=== PATIENT | male | born 1995 | race Caucasian/White ===

== ENCOUNTER 2016-12-31 15:32 | Emergency (ER) | payer BC ==
[2016-12-31 15:52] VITALS: BP 73/48
--- NOTE | 2016-12-31 16:09 | EDM.PDOC ---
ED HPI GENERAL MEDICAL PROBLEM - General Chief Complaint: Lower Extremity Injury/Pain Stated Complaint: LEFT KNEE INJURY Time Seen by Provider: 12/31/16 15:45 Source of Information: Reports: Patient, Family History Limitations: Reports: No Limitations - History of Present Illness INITIAL COMMENTS - FREE TEXT/NARRATIVE: Eduardo was chasing another male when his L knee buckled and he fell onto the street about an hour ago. There was no LOC. There is residual pain and minor swelling of the L knee. He can fully extend and flex the L knee. This knee was injured 4-5 years ago, and he wore a knee brace for a couple of years, but since discarded. He has taken no meds. Left Knee Pain Score (Numeric/FACES): 10 - Related Data Allergies Allergy/AdvReac Type Severity Reaction Status Date / Time No Known Allergies Allergy Verified 12/31/16 15:42 Home Meds: Home Meds NK [No Known Home Meds] 04/09/16 [History] Past Medical History - Past Health History Medical/Surgical History: Denies Medical/Surgical History Social & Family History - Tobacco Use Smoking Status *Q: Current Every Day Smoker Years of Tobacco use: 5 Packs/Tins Daily: 1 Used Tobacco, but Quit: No Second Hand Smoke Exposure: Yes - Caffeine Use Caffeine Use: Reports: Soda - Alcohol Use Days Per Week of Alcohol Use: 0 - Recreational Drug Use Recreational Drug Use: No Review of Systems - Review of Systems Review Of Systems: See Below Constitutional: Reports: No Symptoms Eyes: Reports: No Symptoms Ears: Reports: No Symptoms Nose: Reports: No Symptoms Mouth/Throat: Reports: No Symptoms Respiratory: Reports: No Symptoms Cardiovascular: Reports: No Symptoms GI/Abdominal: Reports: No Symptoms Genitourinary: Reports: No Symptoms Musculoskeletal: Reports: Leg Pain (L knee) Skin: Reports: No Symptoms Neurological: Reports: No Symptoms Psychiatric: Reports: No Symptoms ED EXAM, GENERAL - Physical Exam Exam: See Below Exam Limited By: No Limitations General Appearance: Alert, WD/WN, Mild Distress Head: Atraumatic, Normocephalic Neck: Normal Inspection Respiratory/Chest: Lungs Clear Cardiovascular: Regular Rate, Rhythm Back Exam: Normal Inspection Extremities: Joint Swelling (L knee, Lachmans neg, Jovanna neg, Apley neg; FROM , minor effusion) Neurological: Alert, Oriented, CN II-XII Intact, Normal Cognition, No Motor/ Sensory Deficits Psychiatric: Normal Affect, Normal Mood Skin Exam: Warm, Dry, Intact Lymphatic: No Adenopathy Course - Vital Signs Text/Narrative:: Eduardo remained stable at the [facility] ED. No meds were dispensed. He was fitted with crutches. Last Recorded V/S: Last Vital Signs Temp 36.6 C 12/31/16 15:43 Pulse 86 12/31/16 15:43 Resp 14 12/31/16 15:43 BP 73/48 L 12/31/16 15:43 Pulse Ox 97 12/31/16 15:43 Departure - Departure Time of Disposition: 16:10 Disposition: Home, Self-Care 01 Condition: fair Clinical Impression: Sprain of left knee Qualifiers: Encounter type: initial encounter Involved ligament of knee: unspecified ligament Qualified Code(s): S83.92XA - Sprain of unspecified site of left knee, initial encounter - Discharge Information Forms: ED Department Discharge - Problem List & Annotations (1) Sprain of left knee SNOMED Code(s): 98842190 Code(s): S83.92XA - SPRAIN OF UNSPECIFIED SITE OF LEFT KNEE, INITIAL ENCOUNTER Status: Acute Annotation/Comment:: Simple sprain L knee, managed with touch wt bearing, crutches, Ibuprofen, and medical leave from work for the next few days. Qualifiers: Encounter type: initial encounter Involved ligament of knee: unspecified ligament Qualified Code(s): S83.92XA - Sprain of unspecified site of left knee , initial encounter - Problem List Review Problem List Initiated/Reviewed/Updated: Yes - Assessment/Plan Plan: Follow up with PCP in the next few days.
== END 2016-12-31 16:04 | disposition home or self-care (01) ==
LOC: FB.ED 15:32
DX: S83.92XA Sprain of unspecified site of left knee, initial encounter (principal); F17.210 Nicotine dependence, cigarettes, uncomplicated; W19.XXXA Unspecified fall, initial encounter; Y92.410 Unspecified street and highway as the place of occurrence of the external cause
CPT/HCPCS: 99283

== ENCOUNTER 2020-02-19 20:27 | Emergency (ER) | payer BC ==
[2020-02-19 20:56] VITALS: BP 123/76; PULSE 80
--- NOTE | 2020-02-19 22:04 | EDM.PDOC ---
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 He also feels somewhat short of breath during this but he had no chest pain. He had a headache associated with this. And he had pain in his arms. Lasted for about 30 minutes or so and because of the persisting pain in his left arm now it seems to go all up and down his left arm that is an aching type pain and the feeling that he cannot intervention analyst as well with his left hand as he normally does caused him to present to the emergency department for evaluation. He had similar type symptoms in the right arm but these have resolved. He is currently rating the pain in his left arm as a 6/10. It is aching. Doesn't really seem to have any alleviating factors and is worse with palpation and movement. He has had no chest pain associated with this. He did feel somewhat short of breath at that has resolved as well. He had a slight headache associated with this but that is resolved he now feels almost back to normal except for the left arm discomfort. He has never had any chest pain associated with this. There has been no fevers or chills. The cough. No sore throat. There are really no antecedent problems. He had basically been working since 5:15 AM that morning. He states however that he works long days almost every day he has never had symptoms like this before. There are no other associated signs or symptoms. There are no other modifying factors. Onset: Today (5:30 to 6 PM) Duration: Improving Location: Reports: Upper Extremity, Left, Upper Extremity, Right Quality: Reports: Ache, Other (Sore) Severity: Moderate Improves with: Reports: None (Just getting better with time.) Worsens with: Reports: None Context: Reports: Other (As above) Associated Symptoms: Reports: Headaches, Shortness of Breath Treatments [employer]: Reports: Other (see below) (Nothing) - Related Data Allergies Allergy/AdvReac Type Severity Reaction Status Date / Time No Known Allergies Allergy Verified 02/19/20 20:47 Home Meds: Home Meds NK [No Known Home Meds] 04/09/16 [History] Past Medical History - Past Health History Medical/Surgical History: Denies Medical/Surgical History Cardiovascular History: Reports: Other (See Below) (Heart murmur as a child) - Past Surgical History Other Surgical History Comment: No previous surgeries. Social & Family History - Family History Family Medical History: Unobtainable (Patient reports that he does not know any other medical problems in his family because he does not have any contact with his family.) - Tobacco Use Smoking Status *Q: Unknown Ever Smoked (Nonsmoker) - Caffeine Use Caffeine Use: Reports: Soda - Alcohol Use Alcohol Use History: Yes Alcohol Use Frequency: Socially (Occasional alcohol use.) - Living Situation & Occupation Occupation: Employed (He works as a [employer].) ED ROS GENERAL - Review of Systems Review Of Systems: See Below Constitutional: Reports: No Symptoms HEENT: Reports: No Symptoms Respiratory: Reports: No Symptoms Cardiovascular: Reports: No Symptoms Endocrine: Reports: No Symptoms GI/Abdominal: Reports: No Symptoms : Reports: No Symptoms Musculoskeletal: Reports: Arm Pain Skin: Reports: No Symptoms Neurological: Reports: Numbness, Paresthesia Hematologic/Lymphatic: Reports: No Symptoms Immunologic: Reports: No Symptoms ED EXAM, GENERAL - Physical Exam Exam: See Below Exam Limited By: No Limitations General Appearance: Alert, WD/WN, No Apparent Distress Eye Exam: Bilateral Eye: EOMI, Normal Inspection, PERRL Ears: Normal External Exam, Hearing Grossly Normal Ear Exam: Bilateral Ear: Auricle Normal Nose: Normal Inspection, Normal Mucosa, No Blood Throat/Mouth: Normal Inspection, Normal Lips, Normal Oropharynx, Normal Voice, No Airway Compromise Head: Atraumatic, Normocephalic Neck: Normal Inspection, Supple, Non-Tender, Full Range of Motion Respiratory/Chest: No Respiratory Distress, Lungs Clear, Normal Breath Sounds, No Accessory Muscle Use Cardiovascular: Normal Peripheral Pulses, Regular Rate, Rhythm, No Murmur, No Rub Peripheral Pulses: 2+: Radial (L), Radial (R), Dorsalis Pedis (L), Dorsalis Pedis (R) GI/Abdominal: Normal Bowel Sounds, Soft, Non-Tender, No Mass (Male) Exam: No: Testicular Tenderness (R) Back Exam: Normal Inspection, Full Range of Motion, CVA Tenderness (L) Extremities: Normal Inspection, Normal Range of Motion, No Pedal Edema, Normal Capillary Refill Neurological: Alert, Oriented, CN II-XII Intact, Normal Cognition, No Motor/Sensory Deficits Skin Exam: Warm, Dry, Intact, Normal Color, No Rash EKG INTERPRETATION EKG Date: 02/19/20 Time: 22:05 Rhythm: NSR Rate (Beats/Min): 68 [place]: Normal P-Wave: Present QRS: Normal ST-T: Normal QT: Normal Comparison: NA - No Prior EKG (Normal EKG.) Course - Vital Signs Last Recorded V/S: Last Vital Signs Temp 36.6 C 02/19/20 20:30 Pulse 80 02/19/20 20:30 Resp 18 02/19/20 20:30 BP 123/76 02/19/20 20:30 Pulse Ox 100 02/19/20 20:30 - Orders/Labs/Meds Orders: Active Orders 24 hr Category Date Time Status EKG 12 Lead [EK] Routine Ther 02/19/20 22:04 Ordered - Re-Assessments/Exams Free Text/Narrative Re-Assessment/Exam: 02/19/20 22:20: EKG was reassuringly normal. I have told the patient that we would need to do blood tests and an x-ray of his chest and a CT scan of his head to more fully investigate this. He is only willing to have the EKG performed. He is not willing to have blood tests performed, a CT scan performed or a chest x-ray performed. I have told him that an EKG would not be sufficient to adamantly evaluate him but he is rather adamant about only one EKG and if that is normal he would want to go home despite any risk associated with this. Therefore, with his EKG being normal and the symptoms and his left hand and arm appearing to resolve, he wishes to go home. I have strongly encouraged him to follow-up with his primary provider and I have told her that he can come back at any time for reevaluation or completion of this evaluation. Departure - Departure Time of Disposition: 22:25 Disposition: Home, Self-Care 01 Clinical Impression: Left arm pain, Left upper extremity numbness, Dizziness - Discharge Information Instructions: Dizziness, [id number], Pain Without a Known Cause Referrals: Lavelle Tierney MD [Primary Care Provider] - Forms: ED Department Discharge Additional Instructions: Your EKG was normal. As we discussed, I recommended further testing which would include blood tests, a chest x-ray and a CAT scan of your head to more fully evaluate you for the symptoms that you presented with. You did not wish to have these tests performed and understand the risks of not having these tests performed. I am unsure why you had the dizziness and bilateral arm numbness and arm pain. I strongly encourage you to follow-up with your primary provider tomorrow and you may come back to the emergency department at any time for completion of your evaluation or reevaluation. - My Orders Last 24 Hours: My Active Orders 02/19/20 22:04 EKG 12 Lead [EK] Routine - Assessment/Plan Last 24 Hours: My Active Orders 02/19/20 22:04 EKG 12 Lead [EK] Routine
== END 2020-02-19 22:40 | disposition home or self-care (01) ==
LOC: FB.ED 20:27
DX: M79.602 Pain in left arm (principal); R20.0 Anesthesia of skin; R42 Dizziness and giddiness
CPT/HCPCS: 93005; 99284-25